=== PATIENT | female | born 1985 | race Caucasian/White ===

== ENCOUNTER 2017-09-29 01:50 | Emergency (ER) | payer MEDICAID, OTHER ==
--- NOTE | 2017-09-29 02:21 | EDM.PDOC ---
ED HPI GENERAL MEDICAL PROBLEM - General Stated Complaint: EVAL Time Seen by Provider: 09/29/17 01:50 Source of Information: Reports: Patient, Police History Limitations: Reports: Combative/Threatening (suicidal thoughts), Intoxication - History of Present Illness INITIAL COMMENTS - FREE TEXT/NARRATIVE: 32 y.o.w.f came to the ed by the police after she was found driving drunk. ETOH Breathalyzer showed 0.21 as per police. Pt was about to be jailed when she said she wants to kill herself. Pt's boyfriend called the police his girlfriend, the patient, is driving drunk to her parents. The police stopped her on the road. As the patient arrived here in the ed, she was very upset and not cooperative, requesting the portrait studio photographer etc and refusing the nurse to take the vitals, refusing Psych consult blood work, but gave Urine to be analysed. Pt drank water and felt a little better. Pt walked back and forth through the ed department, talking. then forcefully hyperventilating. BP 136/84 RR 20 Pulse ox 100% on RA Pulse 99 Temp 36.8 Onset Date: 09/29/17 Onset Time: 12:05 Duration: Hour(s):, Constant Location: Reports: Generalized Quality: Reports: Other Severity: Mild Improves with: Reports: Medication Context: Reports: Other (etoh abuse) - Related Data Allergies Allergy/AdvReac Type Severity Reaction Status Date / Time amoxicillin Allergy Hives Verified 09/29/17 02:26 erythromycin base Allergy Hives Verified 09/29/17 02:26 ethinyl estradiol Allergy Rash Verified 09/29/17 02:26 [From Ortho Tri-Cyclen (28)] norethindrone Allergy Rash Verified 09/29/17 02:26 [From Cyclafem (28)] norgestimate Allergy Rash Verified 09/29/17 02:26 [From Ortho Tri-Cyclen (28)] Penicillins Allergy Hives Verified 09/29/17 02:26 tramadol HCl [From Ultram] Allergy Hives Verified 09/29/17 02:26 Home Meds: Home Meds Hydrocodone/Acetaminophen [Hydrocodon-Acetaminophen 5-325] 1 each PO DAILY PRN 15 Days tablet 02/18/14 [Rx] medroxyPROGESTERone Acetate [Depo-Provera] 150 mg IM ASDIRECTED 02/18/14 [ History] Past Medical History - Past Health History Medical/Surgical History: Denies Medical/Surgical History [employer] History: Reports: Endometriosis - Past Surgical History Female Surgical History: Reports: Other (See Below) Social & Family History - Living Situation & Occupation Living situation: Reports: Single Occupation: Employed ED ROS GENERAL - Review of Systems Review Of Systems: Unable To Obtain - Physical Exam Exam: See Below Exam Limited By: Intoxication General Appearance: Anxious Eye Exam: Bilateral Eye: Normal Inspection Ears: Normal External Exam Nose: Normal Inspection Throat/Mouth: Normal Lips, Normal Teeth, Normal Voice, No Airway Compromise, Other (decreased moisture of mucosal membranes) Head Exam: Atraumatic, Normocephalic Neck: Normal Inspection, Supple, Non-Tender, Full Range of Motion Respiratory/Chest: No Respiratory Distress, Lungs Clear, No Accessory Muscle Use , Chest Non-Tender Cardiovascular: Normal Peripheral Pulses, Regular Rate, Rhythm GI/Abdominal: Normal Bowel Sounds, Soft, Non-Tender, No Organomegaly, No Distention, No Abnormal Bruit, No Mass, Pelvis Stable (Female) Exam: Deferred Rectal (Female) Exam: Deferred Neuro Exam (Abbreviated): Alert, Oriented, CN II-XII Intact, Normal Cognition, Normal Gait, No Motor/Sensory Deficits Back Exam: Normal Inspection, Full Range of Motion Extremities: Normal Inspection, Normal Range of Motion, Non-Tender, No Pedal Edema, Normal Capillary Refill Psychiatric: Anxious, Tearful Skin Exam: Warm, Dry, Intact, Normal Color, No Rash Course - Vital Signs Text/Narrative:: 32 y.o.w.f came to the ed by the police after she was found driving drunk. ETOH Breathalyzer showed 0.21 as per police. Pt was about to be jailed when she said she wants to kill herself. Pt's boyfriend called the police his girlfriend, the patient, is driving drunk to her parents. The police stopped her on the road. As the patient arrived here in the ed, she was very upset and not cooperative, requesting the portrait studio photographer etc and refusing the nurse to take the vitals, refusing Psych consult blood work, but gave Urine to be analysed. Pt drank water and felt a little better. Pt walked back and forth through the ed department, talking. then forcefully hyperventilating. BP 136/84 RR 20 Pulse ox 100% on RA Pulse 99 Temp 36.8 PE: Intoxicated 32 y.o.w.f very upset, attempted to hyperventilate 2.25 am Consultation: Psych: Pt threw the phone away Labs: UA pos for THC products Pt refused blood tests Impression: ETOH intoxication, Dehydration, Anxiety Tx: Water po, Ativan Reexam: Improved, pt was cooperative Plan: D/C by the police with instructions, pt refused to sign the D/C papers Last Recorded V/S: Last Vital Signs Temp 36.5 C 09/29/17 03:25 Pulse 83 09/29/17 03:25 Resp 17 09/29/17 03:25 BP 120/77 09/29/17 03:25 Pulse Ox 100 09/29/17 03:25 - Orders/Labs/Meds Orders: Active Orders 24 hr Category Date Time Status DRUG SCREEN, URINE ALERE [URCHEM] Stat Lab 09/29/17 02:07 Ordered HCG QUALITATIVE,URINE [URCHEM] Stat Lab 09/29/17 02:07 Ordered Labs: Laboratory Tests 09/29/17 09/29/17 Range/Units 02:07 02:07 Urine HCG, Qual Negative (NEGATIVE) Urine Opiates Screen Negative (NEGATIVE) Ur Oxycodone Screen Negative (NEGATIVE) Ur Propoxyphene Screen Negative (NEGATIVE) Ur Barbituates Screen Negative (NEGATIVE) Ur Tricyclics Screen Negative (NEGATIVE) Ur Phencyclidine Scrn Negative (NEGATIVE) Ur Amphetamine Screen Negative (NEGATIVE) Urine MDMA Screen Negative (NEGATIVE) U Benzodiazepines Scrn Negative (NEGATIVE) U Cocaine Metab Screen Negative (NEGATIVE) U Marijuana (THC) Screen Positive H (NEGATIVE) Meds: Medications Discontinued Medications Generic Name Dose Route Start Last Admin Trade Name Freq PRN Reason Stop Dose Admin Diphenhydramine HCl 50 mg 09/29/17 02:47 09/29/17 03:28 Benadryl IM 09/29/17 02:48 Not Given ONETIME STA Lorazepam 1 mg 09/29/17 02:47 09/29/17 02:54 Ativan IM 09/29/17 02:48 1 mg ONETIME STA Administration Departure - Departure Time of Disposition: 03:19 Disposition: Home, Self-Care 01 Condition: Good Clinical Impression: Intoxication, Medical clearance for incarceration - Discharge Information Referrals: Farzad Slade MD [Primary Care Provider] - Forms: ED Department Discharge Additional Instructions: Please increase water intake, please f/u, come back if your symptoms get worse acutely. - My Orders Last 24 Hours: My Active Orders 09/29/17 02:07 DRUG SCREEN, URINE ALERE [URCHEM] Stat HCG QUALITATIVE,URINE [URCHEM] Stat - Assessment/Plan Last 24 Hours: My Active Orders 09/29/17 02:07 DRUG SCREEN, URINE ALERE [URCHEM] Stat HCG QUALITATIVE,URINE [URCHEM] Stat
[2017-09-29] MEDS ORDERED: LORazepam 2 MG/ML SDV IM STA (02:47)
[2017-09-29] MEDS: diphenhydrAMINE 50 MG/ML SDV IM STA ×2 (02:55→03:28)
[2017-09-29 03:47] VITALS: BP 120/77
== END 2017-09-29 03:25 | disposition home or self-care (01) ==
LOC: FB.ED 01:50
DX: F10.129 Alcohol abuse with intoxication, unspecified (principal); E86.0 Dehydration; F41.9 Anxiety disorder, unspecified; Z88.1 Allergy status to other antibiotic agents; Z88.0 Allergy status to penicillin
CPT/HCPCS: 80305; 81025; 96372; 99283; J2060; J1200

== ENCOUNTER 2018-05-22 12:46 | Emergency (ER) | payer MEDICAID ==
--- NOTE | 2018-05-22 13:37 | EDM.PDOCBH ---
ED HPI GENERAL MEDICAL PROBLEM - General Chief Complaint: Drug or Alcohol Abuse Stated Complaint: Disorganized thought processes; auditory hallucinations; paranoia Time Seen by Provider: 05/22/18 13:10 Source of Information: Reports: Patient, Family History Limitations: Reports: Altered Mental Status (Patient was somewhat disorganized thought processes) - History of Present Illness INITIAL COMMENTS - FREE TEXT/NARRATIVE: 33-year-old female who called her mother today and reported that she did not feel safe at home and she was having trouble keeping her thoughts straight. Mother reports that when she arrived she noticed that the patient was having disjointed speech and disorganized thoughts. She also reports that the patient told her that the telephone was telling her to adjust her thermostat. She was reporting to her mother that people or hacking into her phone and computer and they were trying to get her. Apparently initially she did not know where 5-year- old child was located and later the patient's mother found out that the patient' s boyfriend/significant other had taken a 5-year-old school. The mother also reports that the patient's significant other stated that the patient has been with disorganized thoughts and racing speech with paranoia since Sunday, 2018. Her symptoms seem to be worsening according to the boyfriend. The mother reports that she is received several calls over the past 3 days from her daughter and each time she seemed disorganized in her thoughts and she feels that her symptoms are worsening as well. The patient denies any pain. She rates her pain as 0/10. She's had no nausea or vomiting. She reports she has been eating and drinking normally. She denies any cough. She denies any shortness of breath. She denies any fever. She reports that she has been using methamphetamines (smoking) over the past few months but she is unsure when her last methamphetamine use was. She has also been smoking marijuana. She denies any other drug use or alcohol use. She denies any homicidal or suicidal ideation. She is oriented to person, place and time. There are no other associated signs or symptoms. There are no other modifying factors. Onset: Other (4 days) Duration: Getting Worse Location: Reports: Other (Not applicable) Quality: Reports: Other (No pain except her mental anguish which is somewhat severe) Severity: Severe Improves with: Reports: None Worsens with: Reports: None Context: Reports: Other (Not applicable) Associated Symptoms: Reports: Confusion Treatments LOGGING WORKER: Reports: Other (see below) Other Treatments LOGGING WORKER: Nothing - Related Data Allergies Allergy/AdvReac Type Severity Reaction Status Date / Time amoxicillin Allergy Hives Verified 05/22/18 14:05 erythromycin base Allergy Hives Verified 05/22/18 14:05 ethinyl estradiol Allergy Rash Verified 05/22/18 14:05 [From Ortho Tri-Cyclen (28)] norethindrone Allergy Rash Verified 05/22/18 14:05 [From Cyclafem (28)] norgestimate Allergy Rash Verified 05/22/18 14:05 [From Ortho Tri-Cyclen (28)] Penicillins Allergy Hives Verified 05/22/18 14:05 tramadol HCl [From Ultram] Allergy Hives Verified 05/22/18 14:05 Home Meds: Home Meds Norethindrone [Aygestin] 1 tab PO DAILY PRN 05/22/18 [History] Past Medical History Respiratory History: Reports: Asthma BUSINESS DATABASE ANALYST History: Reports: Endometriosis Psychiatric History: Reports: Anxiety - Past Surgical History Female Surgical History: Reports: Other (See Below) (Laparoscopy) Social & Family History - Tobacco Use Smoking Status *Q: Current Every Day Smoker - Caffeine Use Caffeine Use: Reports: Coffee, Soda, Tea - Alcohol Use Alcohol Use History: Yes Alcohol Use Comment: Patient is sober now and has been for the past 4 months. She is status post DUI 4 months ago. - Recreational Drug Use Recreational Drug Use: Yes Drug Use in Last 12 Months: Yes Recreational Drug Type: Reports: Amphetamines (Speed) - Living Situation & Occupation Living situation: Reports: Single (Has significant other who lives with her and helps her care for her 3 children) ED ROS GENERAL - Review of Systems Review Of Systems: See Below Constitutional: Reports: No Symptoms HEENT: Reports: No Symptoms Respiratory: Reports: No Symptoms Cardiovascular: Reports: No Symptoms Endocrine: Reports: No Symptoms GI/Abdominal: Reports: No Symptoms : Reports: No Symptoms Musculoskeletal: Reports: No Symptoms Skin: Reports: No Symptoms Neurological: Reports: No Symptoms Psychiatric: Reports: Anxiety, Confusion, Hallucinations (Auditory), Other ( Paranoid ideation; disorganized thought processes) Hematologic/Lymphatic: Reports: No Symptoms Immunologic: Reports: No Symptoms ED EXAM, BEHAVIORAL HEALTH - Physical Exam Exam: See Below Exam Limited By: No Limitations General Appearance: Alert, WD/WN, No Apparent Distress Eye Exam: Bilateral Eye: EOMI, Normal Inspection, PERRL Ears: Normal External Exam, Hearing Grossly Normal Nose: Normal Inspection, Normal Mucosa, No Blood Throat/Mouth: Normal Inspection, Normal Lips, Normal Voice, No Airway Compromise Head: Atraumatic, Normocephalic Neck: Normal Inspection, Supple, Non-Tender, Full Range of Motion Respiratory/Chest: No Respiratory Distress, Lungs Clear, Normal Breath Sounds, No Accessory Muscle Use Cardiovascular: Normal Peripheral Pulses, Regular Rate, Rhythm, No JVD, No Murmur GI/Abdominal: Normal Bowel Sounds, Soft, Non-Tender, No Organomegaly, No Mass Back Exam: Normal Inspection Extremities: Normal Inspection, Normal Range of Motion, Non-Tender, No Pedal Edema, Normal Capillary Refill Neurological: Alert, CN II-XII Intact, Normal Gait, No Motor/Sensory Deficits, Oriented x 3 Psychiatric: Alert, Oriented, Tangential Thoughts, Auditory Hallucinations, Paranoid Thoughts Skin Exam: Warm, Dry, Intact, Normal color, No rash COURSE, BEHAVIORAL HEALTH COMP - Course Orders, Labs, Meds: Laboratory Tests 05/22/18 05/22/18 05/22/18 Range/Units 13:38 13:38 13:38 WBC 7.1 (4.5-12.0) X10-3/uL RBC 4.03 (3.23-5.20) x10(6)uL Hgb 12.7 (11.5-15.5) g/dL Hct 36.6 (30.0-51.3) % MCV 90.8 (80-96) fL MCH 31.5 (27.7-33.6) pg MCHC 34.7 (32.2-35.4) g/dL RDW 12.6 (11.5-15.5) % Plt Count 305 (125-369) X10(3)uL MPV 8.0 (7.4-10.4) fL Neut % (Auto) 68.3 (46-82) % Lymph % (Auto) 24.9 (13-37) % [place] % (Auto) 5.6 (4-12) % Eos % (Auto) 1 (1.0-5.0) % Baso % (Auto) 1 (0-2) % Neut # (Auto) 4.9 (1.6-8.3) # Lymph # (Auto) 1.8 (0.6-5.0) # [place] # (Auto) 0.4 (0.0-1.3) # Eos # (Auto) 0.0 (0.0-0.8) # Baso # (Auto) 0.0 (0.0-0.2) # Sodium 138 (135-145) mmol/L Potassium 4.1 (3.5-5.3) mmol/L Chloride 104 (100-110) mmol/L Carbon Dioxide 27 (21-32) mmol/L BUN 12 (7-18) mg/dL Creatinine 0.7 (0.55-1.02) mg/dL Est Cr Clr Drug Dosing TNP Estimated GFR (MDRD) > 60 (>60) BUN/Creatinine Ratio 17.1 (9-20) Glucose 96 (80-116) mg/dL Calcium 9.0 (8.6-10.2) mg/dL Total Bilirubin 0.5 (0.1-1.3) mg/dL AST 18 (5-25) IU/L ALT 28 (12-36) U/L Alkaline Phosphatase 65 (56-112) IU/L Total Protein 7.1 (6.0-8.0) g/dL Albumin 4.2 (3.5-5.2) g/dL Globulin 2.9 g/dL Albumin/Globulin Ratio 1.5 TSH, Ultra Sensitive 0.42 (0.36-3.74) IU/mL Urine Color (YELLOW) Urine Appearance (CLEAR) Urine pH (5.0-6.5) Ur Specific Cunningham (1.010-1.025) Urine Protein (NEGATIVE) mg/dL Urine Glucose (UA) (NORMAL) mg/dL Urine Ketones (NEGATIVE) mg/dL Urine Occult Blood (NEGATIVE) Urine Nitrite (NEGATIVE) Urine Bilirubin (NEGATIVE) Urine Urobilinogen (NEGATIVE) mg/dL Ur Leukocyte Esterase (NEGATIVE) Urine WBC (0-5) Ur Squamous Epith Cells (NS,R,O) Urine Bacteria (NS) Urine HCG, Qual (NEGATIVE) Salicylates 4.7 (<2.8) mg/dL Urine Opiates Screen (NEGATIVE) Ur Oxycodone Screen (NEGATIVE) Ur Propoxyphene Screen (NEGATIVE) Acetaminophen < 2 L (<2) ug/mL Ur Barbituates Screen (NEGATIVE) Ur Tricyclics Screen (NEGATIVE) Ur Phencyclidine Scrn (NEGATIVE) Ur Amphetamine Screen (NEGATIVE) Urine MDMA Screen (NEGATIVE) U Benzodiazepines Scrn (NEGATIVE) U Cocaine Metab Screen (NEGATIVE) U Marijuana (THC) Screen (NEGATIVE) Ethyl Alcohol < 0.03 (<0.03) % 05/22/18 05/22/18 05/22/18 Range/Units 13:50 13:50 13:50 WBC (4.5-12.0) X10-3/uL RBC (3.23-5.20) x10(6)uL Hgb (11.5-15.5) g/dL Hct (30.0-51.3) % MCV (80-96) fL MCH (27.7-33.6) pg MCHC (32.2-35.4) g/dL RDW (11.5-15.5) % Plt Count (125-369) X10(3)uL MPV (7.4-10.4) fL Neut % (Auto) (46-82) % Lymph % (Auto) (13-37) % [place] % (Auto) (4-12) % Eos % (Auto) (1.0-5.0) % Baso % (Auto) (0-2) % Neut # (Auto) (1.6-8.3) # Lymph # (Auto) (0.6-5.0) # [place] # (Auto) (0.0-1.3) # Eos # (Auto) (0.0-0.8) # Baso # (Auto) (0.0-0.2) # Sodium (135-145) mmol/L Potassium (3.5-5.3) mmol/L Chloride (100-110) mmol/L Carbon Dioxide (21-32) mmol/L BUN (7-18) mg/dL Creatinine (0.55-1.02) mg/dL Est Cr Clr Drug Dosing Estimated GFR (MDRD) (>60) BUN/Creatinine Ratio (9-20) Glucose (80-116) mg/dL Calcium (8.6-10.2) mg/dL Total Bilirubin (0.1-1.3) mg/dL AST (5-25) IU/L ALT (12-36) U/L Alkaline Phosphatase (56-112) IU/L Total Protein (6.0-8.0) g/dL Albumin (3.5-5.2) g/dL Globulin g/dL Albumin/Globulin Ratio TSH, Ultra Sensitive (0.36-3.74) IU/mL Urine Color Yellow (YELLOW) Urine Appearance Slightly cloudy (CLEAR) Urine pH 6.0 (5.0-6.5) Ur Specific Cunningham 1.020 (1.010-1.025) Urine Protein 30 H (NEGATIVE) mg/dL Urine Glucose (UA) Normal (NORMAL) mg/dL Urine Ketones 150 H (NEGATIVE) mg/dL Urine Occult Blood Negative (NEGATIVE) Urine Nitrite Negative (NEGATIVE) Urine Bilirubin Small H (NEGATIVE) Urine Urobilinogen Normal (NEGATIVE) mg/dL Ur Leukocyte Esterase Negative (NEGATIVE) Urine WBC 0-5 (0-5) Ur Squamous Epith Cells Moderate H (NS,R,O) Urine Bacteria Many H (NS) Urine HCG, Qual Negative (NEGATIVE) Salicylates (<2.8) mg/dL Urine Opiates Screen Negative (NEGATIVE) Ur Oxycodone Screen Negative (NEGATIVE) Ur Propoxyphene Screen Negative (NEGATIVE) Acetaminophen (<2) ug/mL Ur Barbituates Screen Negative (NEGATIVE) Ur Tricyclics Screen Negative (NEGATIVE) Ur Phencyclidine Scrn Negative (NEGATIVE) Ur Amphetamine Screen Positive H (NEGATIVE) Urine MDMA Screen Positive H (NEGATIVE) U Benzodiazepines Scrn Negative (NEGATIVE) U Cocaine Metab Screen Negative (NEGATIVE) U Marijuana (THC) Screen Positive H (NEGATIVE) Ethyl Alcohol (<0.03) % Re-Assessment/Re-Exam: 1410 hrs.: Patient's lab results are back. They are all reassuring. Her urine tox screen was positive for THC, methamphetamines and MDMA. She continues to deny any suicidal or homicidal ideation. She has remained calm and cooperative and vitally stable but continues with disorganized thought processes and with delusional thinking. Because of this, she presents a danger to herself and others and will need psychiatric evaluation and inpatient treatment. Those services are not available at [facility] and she will need transfer to a facility with those services available. We are currently beginning to check for psychiatric bed availability. Re-Assessment/Re-Exam Date: 05/22/18 (1535 hrs.: [facility] facility and [facility] both feel the patient is inappropriate for their units and will not accept the patient. We will call the mobile mental health crisis unit at this point to see if they will evaluate the patient.) Re-Assessment/Re-Exam Time: 16:05 (The patient continues to be vitally stable. We are having no success in finding a mental health bed for this patient. While the patient does not appear to be safe by herself or caring for her children, she would be safe if she had family or friend supervision with cessation of drug use and with close mental health follow-up. The mother is agreeable to providing the supervision and coordinating it with the rest of the family. The patient is awake and alert now and oriented to person, place, time and situation. She would not really be willing for inpatient placement at this time but would be in favor of going home with mother and other family supervision and follow-up with [facility] (where she has been receiving mental health counseling). I feel that this is a safe and appropriate disposition for the patient. The mother is in agreement with this and willing to responsibility for the patient. The patient again not suicidal or homicidal ideation.) Departure - Departure Time of Disposition: 16:12 Disposition: Home, Self-Care 01 Clinical Impression: Delusions, Polysubstance abuse, Disorganized thought process, Methamphetamine abuse Psychosis Qualifiers: Psychosis type: unspecified psychosis type Qualified Code(s): F29 - Unspecified psychosis not due to a substance or known physiological condition - Discharge Information Instructions: Stimulant Use Disorder-Amphetamines, Finding Treatment for Addiction Referrals: Ty Gamboa MD [Primary Care Provider] - Forms: ED Department Discharge Additional Instructions: Stop using methamphetamines and marijuana. Drink plenty of fluids. Eat well- balanced meals. You are being discharged to the care of your mother. You are scheduled to follow-up with Eileen at [facility] tomorrow at 1 PM. Back to the emergency department for feelings of wanting to harm yourself or other people, vomiting, fever or any other concerning sign or symptom.
[2018-05-22 14:20] LABS: ACETAMINOPHEN < 2 ug/mL (<2)
[2018-05-22 18:20] VITALS: BP 114/57
== END 2018-05-22 16:20 | disposition home or self-care (01) ==
LOC: FB.ED 12:46
DX: F29 Unspecified psychosis not due to a substance or known physiological condition (principal); F22 Delusional disorders; F19.10 Other psychoactive substance abuse, uncomplicated; F15.10 Other stimulant abuse, uncomplicated; F17.200 Nicotine dependence, unspecified, uncomplicated; Z88.1 Allergy status to other antibiotic agents; Z88.8 Allergy status to other drugs, medicaments and biological substances
CPT/HCPCS: 36415; 80053; 80305; 81001; 81025; 84443; 85025; 99283; G0480

== ENCOUNTER 2020-02-11 09:04 | Emergency (ER) | payer MEDICAID ==
[2020-02-11] MEDS ORDERED: Ketorolac 60 MG/2 ML SDV IM ONE (09:34)
[2020-02-11] MEDS ORDERED: Acetaminophen/oxyCODONE 325-5 MG Tab PO PRN (09:35)
[2020-02-11] MEDS ORDERED: Cyclobenzaprine 10 MG Tab PO ONE (10:01)
--- NOTE | 2020-02-11 10:09 | EDM.PDOC ---
ED HPI GENERAL MEDICAL PROBLEM - General Chief Complaint: Abdominal Pain Stated Complaint: SEVER PAIN IN LOWER R ABD Time Seen by Provider: 02/11/20 09:10 Source of Information: Reports: Patient History Limitations: Reports: No Limitations - History of Present Illness INITIAL COMMENTS - FREE TEXT/NARRATIVE: Patient presented to the ED because of low back pain which is getting worse. She was shoveling several days ago. The pain is sharp,8/10, over the right si The pain intensifies with movements,de of the lumbar area. R lower back & R lower abdomen Pain Score (Numeric/FACES): 10 - Related Data Allergies Allergy/AdvReac Type Severity Reaction Status Date / Time amoxicillin Allergy Hives Verified 02/11/20 09:11 erythromycin base Allergy Hives Verified 02/11/20 09:11 ethinyl estradiol Allergy Rash Verified 02/11/20 09:11 [From Ortho Tri-Cyclen (28)] norethindrone Allergy Rash Verified 02/11/20 09:11 [From Cyclafem (28)] norgestimate Allergy Rash Verified 02/11/20 09:11 [From Ortho Tri-Cyclen (28)] Penicillins Allergy Hives Verified 02/11/20 09:11 tramadol HCl [From Ultram] Allergy Hives Verified 02/11/20 09:11 Home Meds: Home Meds Cyclobenzaprine [Flexeril] 10 mg PO TID PRN #30 tab 02/11/20 [Rx] Ibuprofen [Ibu] 800 mg PO TID PRN #30 tablet 02/11/20 [Rx] Sulfamethoxazole/Trimethoprim [Bactrim Ds Tablet] 1 each PO BID #10 tablet 02/11/20 [Rx] medroxyPROGESTERone Acetate [Depo-Provera] 150 mg IM Q120D 02/11/20 [History] Past Medical History - Past Health History Medical/Surgical History: Denies Medical/Surgical History Respiratory History: Reports: Asthma Gastrointestinal History: Reports: Cholelithiasis Genitourinary History: Reports: None BANK CASHIER History: Reports: Endometriosis, Other BANK CASHIER History: Neurological History: Reports: Migraines Psychiatric History: Reports: Anxiety Hematologic History: Reports: Anemia Dermatologic History: Reports: Other (See Below) Other Dermatologic History: ectopic dermatitis - Infectious Disease History Infectious Disease History: Reports: Chicken Pox - Past Surgical History HEENT Surgical History: Reports: Oral Surgery Social & Family History - Family History Family Medical History: No Pertinent Family History - Tobacco Use Tobacco Use Status *Q: Current Every Day Tobacco User Years of Tobacco use: 16 Packs/Tins Daily: 0.4 - Caffeine Use Caffeine Use: Reports: Coffee, Energy Drinks, Soda, Tea - Recreational Drug Use Recreational Drug Type: Reports: Marijuana/Hashish Recreational Drug Use Frequency: Daily - Living Situation & Occupation Living situation: Reports: Single (Has significant other who lives with her and helps her care for her 3 children) Occupation: Employed ED ROS GENERAL - Review of Systems Review Of Systems: See Below Constitutional: Reports: Fever HEENT: Reports: No Symptoms Respiratory: Reports: No Symptoms Cardiovascular: Reports: No Symptoms Endocrine: Reports: No Symptoms GI/Abdominal: Reports: Abdominal Pain : Reports: No Symptoms Musculoskeletal: Reports: No Symptoms Skin: Reports: No Symptoms ED EXAM,LOWER BACK PAIN/INJURY - Physical Exam Exam: See Below Exam Limited By: No Limitations General Appearance: Alert, No Apparent Distress Eye Exam: Bilateral Eye: PERRL Ears: Normal External Exam, Normal Canal, Hearing Grossly Normal Nose: Normal Inspection, Normal Mucosa, No Blood Throat/Mouth: Normal Inspection, Normal Lips, Normal Teeth, Normal Gums Head: Atraumatic, Normocephalic Neck: Normal Inspection, Supple, Non-Tender Respiratory/Chest: No Respiratory Distress, Lungs Clear, Normal Breath Sounds Cardiovascular: Normal Peripheral Pulses, Regular Rate, Rhythm, No Edema GI/Abdominal: Normal Bowel Sounds, Soft, Non-Tender, No Organomegaly Rectal (Female) Exam: Normal Exam, Normal Rectal Tone Back Exam: Normal Inspection, Muscle Spasm, Paraspinal Tenderness Extremities: Normal Inspection, Normal Range of Motion, Non-Tender, No Pedal Edema, Normal Capillary Refill Neurological: Alert, Normal Mood/Affect, Normal Dorsiflexion, CN II-XII Intact, Normal Plantar Flexion, Normal Gait, Normal Reflexes, No Motor/Sensory Deficits, Oriented x 3 Course - Vital Signs Text/Narrative:: Labs reviewed with patient Percocet 5/325, 2 po x1 Toradol 60 mg IM x1 Flexeril 10 mg po x1 Last Recorded V/S: Last Vital Signs Temp 38.0 C 02/11/20 10:23 Pulse 132 H 02/11/20 10:23 Resp 18 02/11/20 10:23 BP 116/84 02/11/20 10:23 Pulse Ox 99 02/11/20 10:23 - Orders/Labs/Meds Orders: Active Orders 24 hr Category Date Time Status CULTURE URINE [RM] Stat Lab 02/11/20 10:15 Ordered Labs: Laboratory Tests 02/11/20 02/11/20 02/11/20 Range/Units 09:20 09:30 09:30 WBC 17.8 H (3.0-10.3) x10-3/uL RBC 4.27 (3.60-5.20) x10(6)uL Hgb 12.7 (11.4-15.5) g/dL Hct 38.7 (34.2-48.2) % MCV 90.6 (76.7-100.5) fL MCH 29.8 (23.9-33.9) pg MCHC 32.9 (31.9-34.8) g/dL RDW 12.5 (12.3-16.5) % Plt Count 387 (151-488) x10(3)uL MPV 8.3 (7.1-12.4) fL Add Manual Diff Yes Neutrophils % (Manual) 81 (46-82) % Band Neutrophils % 1 (0-6) % Lymphocytes % (Manual) 13 (13-37) % Monocytes % (Manual) 5 (4-12) % Sodium 134 L (135-145) mmol/L Potassium 3.8 (3.5-5.3) mmol/L Chloride 95 L D (100-110) mmol/L Carbon Dioxide 25 (21-32) mmol/L BUN 10 (7-18) mg/dL Creatinine 1.0 (0.55-1.02) mg/dL Est Cr Clr Drug Dosing 72.29 mL/min Estimated GFR (MDRD) > 60 (>60) BUN/Creatinine Ratio 10.0 (9-20) Glucose 117 H (80-116) mg/dL Calcium 9.0 (8.6-10.2) mg/dL Total Bilirubin 0.5 (0.1-1.3) mg/dL AST 13 D (5-25) IU/L ALT 18 D (12-36) U/L Alkaline Phosphatase 99 (56-112) IU/L Total Protein 8.0 (6.0-8.0) g/dL Albumin 4.1 (3.5-5.2) g/dL Globulin 3.9 g/dL Albumin/Globulin Ratio 1.1 Amylase 23 L (25-115) U/L Lipase (73-393) U/L Urine Color Yellow (YELLOW) Urine Appearance Cloudy (CLEAR) Urine pH 5.0 (5.0-6.5) Ur Specific [place] 1.020 (1.010-1.025) Urine Protein 30 H (NEGATIVE) mg/dL Urine Glucose (UA) Normal (NORMAL) mg/dL Urine Ketones 50 H (NEGATIVE) mg/dL Urine Occult Blood Large H (NEGATIVE) Urine Nitrite Positive H (NEGATIVE) Urine Bilirubin Negative (NEGATIVE) Urine Urobilinogen Normal (NEGATIVE) mg/dL Ur Leukocyte Esterase Large H (NEGATIVE) Urine RBC >100 H (0-5) Urine WBC >100 H (0-5) Ur Squamous Epith Cells Few H (NS,R,O) Urine Bacteria Many H (NS) 02/11/20 Range/Units 09:30 WBC (3.0-10.3) x10-3/uL RBC (3.60-5.20) x10(6)uL Hgb (11.4-15.5) g/dL Hct (34.2-48.2) % MCV (76.7-100.5) fL MCH (23.9-33.9) pg MCHC (31.9-34.8) g/dL RDW (12.3-16.5) % Plt Count (151-488) x10(3)uL MPV (7.1-12.4) fL Add Manual Diff Neutrophils % (Manual) (46-82) % Band Neutrophils % (0-6) % Lymphocytes % (Manual) (13-37) % Monocytes % (Manual) (4-12) % Sodium (135-145) mmol/L Potassium (3.5-5.3) mmol/L Chloride (100-110) mmol/L Carbon Dioxide (21-32) mmol/L BUN (7-18) mg/dL Creatinine (0.55-1.02) mg/dL Est Cr Clr Drug Dosing mL/min Estimated GFR (MDRD) (>60) BUN/Creatinine Ratio (9-20) Glucose (80-116) mg/dL Calcium (8.6-10.2) mg/dL Total Bilirubin (0.1-1.3) mg/dL AST (5-25) IU/L ALT (12-36) U/L Alkaline Phosphatase (56-112) IU/L Total Protein (6.0-8.0) g/dL Albumin (3.5-5.2) g/dL Globulin g/dL Albumin/Globulin Ratio Amylase (25-115) U/L Lipase 57 L (73-393) U/L Urine Color (YELLOW) Urine Appearance (CLEAR) Urine pH (5.0-6.5) Ur Specific [place] (1.010-1.025) Urine Protein (NEGATIVE) mg/dL Urine Glucose (UA) (NORMAL) mg/dL Urine Ketones (NEGATIVE) mg/dL Urine Occult Blood (NEGATIVE) Urine Nitrite (NEGATIVE) Urine Bilirubin (NEGATIVE) Urine Urobilinogen (NEGATIVE) mg/dL Ur Leukocyte Esterase (NEGATIVE) Urine RBC (0-5) Urine WBC (0-5) Ur Squamous Epith Cells (NS,R,O) Urine Bacteria (NS) Meds: Medications Discontinued Medications Generic Name Dose Route Start Last Admin Trade Name Freq PRN Reason Stop Dose Admin Cyclobenzaprine HCl 10 mg 02/11/20 10:01 02/11/20 10:22 Flexeril PO 02/11/20 10:02 10 mg ONETIME ONE Administration Ketorolac Tromethamine 60 mg 02/11/20 09:34 02/11/20 09:42 Toradol IM 02/11/20 09:35 60 mg ONETIME ONE Administration Oxycodone/Acetaminophen 2 tab 02/11/20 09:35 02/11/20 09:40 Percocet 325-5 Mg PO 2 tab ONETIME PRN Administration Pain Departure - Departure Time of Disposition: 11:00 Disposition: Home, Self-Care 01 Condition: Good Clinical Impression: Lumbosacral strain, Chronic pelvic pain in female, UTI (urinary tract infection) - Discharge Information Prescriptions: Sulfamethoxazole/Trimethoprim [Bactrim Ds Tablet] 1 each PO BID #10 tablet Cyclobenzaprine [Flexeril] 10 mg PO TID PRN #30 tab PRN Reason: Spasms Ibuprofen [Ibu] 800 mg PO TID PRN #30 tablet PRN Reason: Pain Instructions: Pelvic Pain, Female, [id number], Muscle Strain, [id number], Urinary Tract Infection, Adult, Lumbosacral Strain Referrals: James Goncalves MD [Primary Care Provider] - Forms: ED Department Discharge Additional Instructions: Please read discharge instructions on low back pain, UTI, pelvic pain Increase oral fluids Take Bactrim DS twice daily for 5 days(UTI) The the following medications at the same time for better pain relief: Ibupforen 800 mg with tylenol 1000 mg for pain and Flexeril 10 mg for spasm every 8 hours as needed for pain and spasm Follow up as needed Sepsis Event Note (ED) - Evaluation Sepsis Screening Result: No Definite Risk - Focused Exam Vital Signs: Vital Signs Temp Temp Pulse Resp BP Pulse Ox 02/11/20 10:23 38.0 C 132 H 18 116/84 99 02/11/20 09:45 38.7 C H 141 H 20 118/82 100 02/11/20 09:05 36.9 C 128 H 18 117/73 100 - My Orders Last 24 Hours: My Active Orders 02/11/20 10:15 CULTURE URINE [RM] Stat - Assessment/Plan Last 24 Hours: My Active Orders 02/11/20 10:15 CULTURE URINE [RM] Stat
[2020-02-11 10:24] VITALS: BP 116/84; PULSE 132
== END 2020-02-11 10:29 | disposition home or self-care (01) ==
LOC: FB.ED 09:04
DX: S39.012A Strain of muscle, fascia and tendon of lower back, initial encounter (principal); N39.0 Urinary tract infection, site not specified; J45.909 Unspecified asthma, uncomplicated; F17.210 Nicotine dependence, cigarettes, uncomplicated; Z88.0 Allergy status to penicillin; Z88.1 Allergy status to other antibiotic agents; Z79.899 Other long term (current) drug therapy; X58.XXXA Exposure to other specified factors, initial encounter; Y93.H1 Activity, digging, shoveling and raking
CPT/HCPCS: 36415; 80053; 81001; 82150; 83690; 85025; 87086; 87088; 87186; 96372; 99284; A9270-GY; J1885

== ENCOUNTER 2021-09-10 00:55 | Emergency (ER) | payer MEDICAID ==
[2021-09-10] MEDS ORDERED: Lidocaine 2% with EPINEPHrine 1:100,000 20 ML MDV INFILT ONE (00:56)
[2021-09-10 01:26] VITALS: BP 131/94; PULSE 110
[2021-09-10] MEDS ORDERED: Diphtheria,Pertussis(Acell),Tetanus Vaccine 0.5 ML Syringe IM ONE (01:33)
== END 2021-09-10 01:46 | disposition home or self-care (01) ==
LOC: FB.ED 00:55
DX: S90.851A Superficial foreign body, right foot, initial encounter (principal); Z88.0 Allergy status to penicillin; Z88.1 Allergy status to other antibiotic agents; Z88.8 Allergy status to other drugs, medicaments and biological substances; Z88.5 Allergy status to narcotic agent; Z23 Encounter for immunization; Z79.899 Other long term (current) drug therapy; W45.8XXA Other foreign body or object entering through skin, initial encounter
CPT/HCPCS: 28190; 90471; 90715; 99283-25

== ENCOUNTER 2022-02-27 19:51 | Emergency (ER) | payer MEDICAID ==
[2022-02-27 21:08] VITALS: BP 118/86; PULSE 109
== END 2022-02-27 21:56 | disposition home or self-care (01) ==
LOC: FB.ED 19:51
DX: J06.9 Acute upper respiratory infection, unspecified (principal); J45.909 Unspecified asthma, uncomplicated; Z88.0 Allergy status to penicillin; Z88.1 Allergy status to other antibiotic agents; Z88.8 Allergy status to other drugs, medicaments and biological substances; Z88.5 Allergy status to narcotic agent; Z79.899 Other long term (current) drug therapy
CPT/HCPCS: 99282; 99283

== ENCOUNTER 2022-10-09 16:49 | Emergency (ER) | payer MEDICAID ==
[2022-10-09] MEDS ORDERED: Hydrocortisone/Neomycin/Polymyxin B Ophth Susp 7.5 ML Bottle EYEBOTH ONE (16:50)
[2022-10-09 19:35] VITALS: BP 128/85; PULSE 96
== END 2022-10-09 17:35 | disposition home or self-care (01) ==
LOC: FB.ED 16:49
DX: S05.01XA Injury of conjunctiva and corneal abrasion without foreign body, right eye, initial encounter (principal); J45.909 Unspecified asthma, uncomplicated; Z79.899 Other long term (current) drug therapy; Z88.1 Allergy status to other antibiotic agents; Z88.0 Allergy status to penicillin; Z88.8 Allergy status to other drugs, medicaments and biological substances; W54.8XXA Other contact with dog, initial encounter
CPT/HCPCS: 99283; A9270